=== PATIENT | male | born 1985 | race Two or more races ===

== ENCOUNTER 2018-07-31 10:38 | Emergency (ER) | payer OTHER, SELFPAY ==
[~2018-07-31] VITALS: Ht 190.5 cm; Wt 123.2 kg
[2018-07-31 11:47] LABS: BASOPHILS # (AUTO) 0.03 x10^3/uL (0-0.1); BASOPHILS % (AUTO) 1 % (0-1); EOSINOPHILS # (AUTO) 0.24 x10^3/uL (0-0.4); EOSINOPHILS % (AUTO) 3 % (1-7); LYMPHOCYTES # (AUTO) 2.64 x10^3/uL (1-3.4); LYMPHOCYTES % (AUTO) 37 % (22-44); MD NO; MEAN CORPUSCULAR HEMOGLOBIN 29.9 pg (27.5-34.5); MEAN CORPUSCULAR HGB CONC 33.7 g/dL (33.2-36.2); MEAN CORPUSCULAR VOLUME 88.6 fL (81-97); MEAN PLATELET VOLUME 8.1 fL (7.4-10.4); MONOCYTES % (AUTO) 7 % (2-9); NEUTROPHILS % (AUTO) 53 % (42-75); PLATELET COUNT 216 x10^3/uL (130-400); RED BLOOD COUNT 5.58 x10^6/uL (4.38-5.82); RED CELL DISTRIBUTION WIDTH 13.6 % (9.4-14.8)
[2018-07-31 11:57] LABS: ALBUMIN 3.9 g/dL (3.4-5.0); ANION GAP 6 mmol/L (5-15); CALCIUM 9.1 mg/dL (8.5-10.1); CHLORIDE 110 mmol/L (98-107)
[2018-07-31 12:02] LABS: CREATININE 1.04 mg/dL (0.7-1.3)
[2018-07-31 12:03] LABS: ALANINE AMINOTRANSFERASE 86 U/L (12-78); ALKALINE PHOSPHATASE 81 U/L (45-117); BILIRUBIN,TOTAL 0.6 mg/dL (0.2-1.0); TOTAL PROTEIN 7.6 g/dL (6.4-8.2)
--- NOTE | 2018-07-31 12:59 | NUR ---
Pt amb from lobby to rm 36. 1wk hx of RUQ pain, intermittent vomiting. Pain worse at night (05/10) while lying down. Denies PMH/PSH. Has been seen by PIT, US & labs complete. At this time pt is pain free & having no n/v. Changed into gown & V/S updated. Will be seen by ER MD. Pt & spouse aware of POC.
[2018-07-31] MEDS ORDERED: ONDANSETRON ODT 4 MG PO ONE (13:30)
[2018-07-31] MEDS ORDERED: DICYCLOMINE 10 MG/ML, 2ML IM ONE (13:30)
[2018-07-31] MEDS ORDERED: OXYcodone/APAP 10/325MG TABLET PO ONE (13:30)
[2018-07-31 13:34] VITALS: BP 121/74
[2018-07-31] MEDS ORDERED: OXYcodone/APAP 10/325MG TABLET ONE (13:41)
[2018-07-31] MEDS ORDERED: DICYCLOMINE 10 MG/ML, 2ML ONE (13:41)
[2018-07-31] MEDS ORDERED: ONDANSETRON ODT 4 MG ONE (13:41)
--- NOTE | 2018-07-31 13:50 | NUR ---
Patient/Caregiver given discharge instructions and they have confirmed that they understand the instructions. Patient ambulatory with steady gait.
== END 2018-07-31 14:03 | disposition home or self-care (01) ==
LOC: ED 13:57
DX: R10.11 Right upper quadrant pain (principal)
CPT/HCPCS: 36415; 76700; 80053; 83690; 85025; 96372; 99284; J0500; Q0162

== ENCOUNTER → 2018-08-22 | Outpatient (CLI) | payer OTHER ==
[~2018-08-22] VITALS: Ht 190.5 cm; Wt 122.1 kg
[~2018-08-22] MED LIST: ACETAMINOPHEN 500 MG TABLET PO ONE; BUPIVACAINE/PF-EPI 0.5% 1:200K ONE; DIAZEPAM 5 MG TABLET PO ONE; DICY20TA3 PO; FAMO-79 PO; FENTANYL PF 250 MCG/5ML ONE; GABAPENTIN 300 MG CAPSULE PO ONE; MIDAZOLAM 1 MG/ML, 2ML ONE; ONDANSETRON ODT 8 MG PO ONE; SCOPOLAMINE PATCH, 1.5MG PATCH.TD72 TD ONE
[2018-08-22] MEDS: LACTATED RINGERS 1,000 ML IV SCH ×2 (08:13→08:22)
[2018-08-22 08:14] VITALS: BP 117/76
[2018-08-22 09:07] LABS: AMPHETAMINE SCREEN, URINE Negative (Negative); BARBITURATE SCREEN, URINE Negative (Negative); BENZODIAZEPINE SCREEN, URINE Negative (Negative); CANNABINOID SCREEN, URINE Negative (Negative); COCAINE SCREEN, URINE Positive (Negative); METHADONE SCREEN, URINE Negative (Negative); OPIATE SCREEN, URINE Negative (Negative)
== END | disposition home or self-care (01) ==
LOC: OUT 07:21 → OR 07:21 → EDSTATUS 09:00 → OUT 09:35
PROVIDERS: ATTEND Surgery
DX: K80.20 Calculus of gallbladder without cholecystitis without obstruction (principal); Z53.9 Procedure and treatment not carried out, unspecified reason
CPT/HCPCS: 80307; J7120; Q0162; J2250; J3010

== ENCOUNTER 2018-08-29 05:41 | Day surgery (SDC) | payer OTHER ==
[~2018-08-29] VITALS: Ht 190.5 cm; Wt 122.9 kg
[~2018-08-29 05:41] MED LIST changes: -ACETAMINOPHEN 500 MG TABLET PO ONE; -BUPIVACAINE/PF-EPI 0.5% 1:200K ONE; -DIAZEPAM 5 MG TABLET PO ONE; -FENTANYL PF 250 MCG/5ML ONE; -GABAPENTIN 300 MG CAPSULE PO ONE; -MIDAZOLAM 1 MG/ML, 2ML ONE; -ONDANSETRON ODT 8 MG PO ONE; -SCOPOLAMINE PATCH, 1.5MG PATCH.TD72 TD ONE
[2018-08-29 06:05] VITALS: BP 127/85
[2018-08-29] MEDS ORDERED: LACTATED RINGERS 1,000 ML IV SCH (06:08)
[2018-08-29] MEDS ORDERED: BUPIVACAINE/PF-EPI 0.5% 1:200K ONE (06:43)
[2018-08-29 06:55] LABS: AMPHETAMINE SCREEN, URINE Negative (Negative); BARBITURATE SCREEN, URINE Negative (Negative); BENZODIAZEPINE SCREEN, URINE Negative (Negative); CANNABINOID SCREEN, URINE Negative (Negative); COCAINE SCREEN, URINE Positive (Negative); METHADONE SCREEN, URINE Negative (Negative); OPIATE SCREEN, URINE Negative (Negative)
== END 2018-08-29 07:25 | disposition home or self-care (01) ==
LOC: OUT 05:41
PROVIDERS: ATTEND Surgery
DX: K80.20 Calculus of gallbladder without cholecystitis without obstruction (principal); Z53.9 Procedure and treatment not carried out, unspecified reason
CPT/HCPCS: 80307

== ENCOUNTER 2020-04-22 11:01 | Emergency (ER) | payer OTHER ==
[~2020-04-22] VITALS: Ht 190.5 cm; Wt 126.5 kg
--- NOTE | 2020-04-22 12:01 | NUR ---
PT SITTING ON GURNEY WATCHING TV. AT BEDSIDE, OK PER HOUSEHOLD PERSONAL ASSISTANT. PT DECLINES ANY NEEDS AT THIS TIME. VSS, NAD. WILL CONTINUE TO MONITOR. CALL LIGHT WITHIN REACH.
[2020-04-22 12:34] LABS: BASOPHILS # (AUTO) 0.02 x10^3/uL (0-0.1); BASOPHILS % (AUTO) 0 % (0-1); EOSINOPHILS # (AUTO) 0.27 x10^3/uL (0-0.4); EOSINOPHILS % (AUTO) 4 % (1-7); LYMPHOCYTES # (AUTO) 2.64 x10^3/uL (1-3.4); LYMPHOCYTES % (AUTO) 36 % (22-44); MD NO; MEAN CORPUSCULAR HEMOGLOBIN 28.8 pg (27.5-34.5); MEAN CORPUSCULAR VOLUME 87.3 fL (81-97); MEAN PLATELET VOLUME 8.1 fL (7.4-10.4); MONOCYTES # (AUTO) 0.55 x10^3/uL (0.2-0.8); MONOCYTES % (AUTO) 8 % (2-9); NEUTROPHILS # (AUTO) 3.84 x10^3/uL (1.8-6.8); NEUTROPHILS % (AUTO) 52 % (42-75); PLATELET COUNT 190 x10^3/uL (130-400); RED BLOOD COUNT 5.12 x10^6/uL (4.38-5.82); RED CELL DISTRIBUTION WIDTH 13.5 % (9.4-14.8)
[2020-04-22 12:47] LABS: ALANINE AMINOTRANSFERASE 64 U/L (12-78); ALBUMIN 3.2 g/dL (3.4-5.0); ANION GAP 4 mmol/L (5-15); CALCIUM 8.4 mg/dL (8.5-10.1); CHLORIDE 115 mmol/L (98-107); CREATININE 0.89 mg/dL (0.7-1.3)
[2020-04-22 12:49] LABS: ALKALINE PHOSPHATASE 97 U/L (45-117); BILIRUBIN,TOTAL 0.3 mg/dL (0.2-1.0); TOTAL PROTEIN 6.5 g/dL (6.4-8.2)
[2020-04-22 12:50] LABS: MICROSCOPIC NOT IND
--- NOTE | 2020-04-22 13:02 | NUR ---
PT SITTING ON GURNEY WITH AT BEDSIDE. PT CALM AND DENIES ANY NEEDS AT THIS TIME. CALL LIGHT WITHIN REACH, COMFORT MEASURES PROVIDED.
[2020-04-22 13:15] VITALS: BP 114/73
--- NOTE | 2020-04-22 13:53 | NUR ---
Patient given discharge instructions and they have confirmed that they understand the instructions. Patient ambulatory with steady gait.
== END 2020-04-22 13:57 | disposition home or self-care (01) ==
LOC: ED 13:13
DX: R11.10 Vomiting, unspecified (principal); R19.7 Diarrhea, unspecified; R51 Headache; F17.210 Nicotine dependence, cigarettes, uncomplicated
CPT/HCPCS: 36415; 80053; 81003; 85025; 99283; 99406

== ENCOUNTER 2021-02-03 10:03 | Emergency (ER) | payer OTHER ==
[~2021-02-03] VITALS: Ht 190.5 cm; Wt 127.0 kg
[~2021-02-03 10:03] MED LIST changes: -DICY20TA3 PO; +DICY20TA4 PO
--- NOTE | 2021-02-03 10:08 | NUR ---
NO ANSWER FROM LOBBY AT THIS TIME.
--- NOTE | 2021-02-03 11:11 | NUR ---
ART OBJECTS SALESPERSON: PT HAVING LABS DRAWN AND THEN TO GO TO ROOM.
[2021-02-03 11:24] LABS: BASOPHILS % (AUTO) 0 % (0-1); EOSINOPHILS % (AUTO) 5 % (1-7); LYMPHOCYTES % (AUTO) 45 % (22-44); MEAN CORPUSCULAR HEMOGLOBIN 29.5 pg (27.5-34.5); MEAN PLATELET VOLUME 8.1 fL (7.4-10.4); MONOCYTES % (AUTO) 9 % (2-9); NEUTROPHILS % (AUTO) 41 % (42-75); PLATELET COUNT 199 x10^3/uL (130-400); RED BLOOD COUNT 5.35 x10^6/uL (4.38-5.82); RED CELL DISTRIBUTION WIDTH 14.2 % (9.4-14.8)
--- NOTE | 2021-02-03 11:26 | NUR ---
PT AMBULATORY TO ROOM FROM LOBBY, FAMILY AT BS. CONNECTED TO MONITORS. PT C/O FEELING "WEIRD" AND FATIGUED, ESPECIALLY WHILE DRIVING AND AT WORK. CALL LIGHT WITHIN REACH. NADN/VSS
--- NOTE | 2021-02-03 11:28 | NUR ---
ERP AT BS FOR EVAL
[2021-02-03 11:34] LABS: ALANINE AMINOTRANSFERASE 71 U/L (12-78); ALBUMIN 3.4 g/dL (3.4-5.0); ANION GAP 6 mmol/L (5-15); CALCIUM 8.7 mg/dL (8.5-10.1); CHLORIDE 113 mmol/L (98-107); CREATININE 0.91 mg/dL (0.7-1.3)
[2021-02-03 11:38] LABS: ALKALINE PHOSPHATASE 113 U/L (45-117); BILIRUBIN,TOTAL 0.3 mg/dL (0.2-1.0); TOTAL PROTEIN 7.1 g/dL (6.4-8.2); TROPONIN I < 0.015 ng/mL (0.000-0.045)
--- NOTE | 2021-02-03 12:15 | NUR ---
TASK RN: PT SLEEPING ON GURNEY W/ FAMILY AT BEDSIDE. NARA HOLLOWAY.
[2021-02-03 12:43] LABS: BARBITURATE SCREEN, URINE Negative (Negative); BENZODIAZEPINE SCREEN, URINE Negative (Negative); COCAINE SCREEN, URINE Positive (Negative); METHADONE SCREEN, URINE Negative (Negative); OPIATE SCREEN, URINE Negative (Negative)
[2021-02-03 12:46] LABS: AMPHETAMINE SCREEN, URINE Negative (Negative); CANNABINOID SCREEN, URINE Negative (Negative)
--- NOTE | 2021-02-03 13:08 | NUR ---
ERP AT BS FOR POC
--- NOTE | 2021-02-03 13:30 | NUR ---
PT TO CT
--- NOTE | 2021-02-03 13:45 | NUR ---
PT BACK FROM [place], CONNCECTED TO ALL MONITORS. CALL LIGHT WITHIN REACH
[2021-02-03 14:13] VITALS: BP 118/62
--- NOTE | 2021-02-03 14:36 | NUR ---
Patient given discharge instructions and they have confirmed that they understand the instructions. Patient ambulatory with steady gait.
[2021-02-03] MEDS ORDERED: OMNIPAQUE 350 MG/ML, 100ML BOTTLE ONE (15:52)
== END 2021-02-03 14:37 | disposition home or self-care (01) ==
LOC: ED 13:24
DX: R55 Syncope and collapse (principal); R42 Dizziness and giddiness; F14.10 Cocaine abuse, uncomplicated; R94.31 Abnormal electrocardiogram [ECG] [EKG]; R07.9 Chest pain, unspecified
CPT/HCPCS: 36415; 71045; 71275; 80053; 80307; 84484; 85025; 93005; 99285; Q9967